=== PATIENT | male | born 1990 | race African-American/Black ===

== ENCOUNTER 2017-06-09 00:59 | Emergency (ER) | payer BC, OTHER ==
[~2017-06-09] VITALS: Ht 190.5 cm; Wt 73.6 kg
[2017-06-09 01:04] VITALS: Ht 190.5 cm; Wt 73.6 kg
[2017-06-09] MEDS ORDERED: IBUPROFEN 600 MG TAB PO ONE (02:00)
--- NOTE | 2017-06-09 02:37 | RADRPT ---
PROCEDURE: XR Ribs. CLINICAL INDICATION: Chest pain. TECHNIQUE: 5 frontal and oblique views of the right ribs were obtained. The images were reviewed on a PACS workstation. COMPARISON: None. FINDINGS: There is no evidence for a rib fracture. The underlying lung parenchyma is intact without evidence f or pneumothorax. IMPRESSION: No acute rib fracture identified. .Michael Shelton MD, Date Time Electronically viewed and signed by .Michael Shelton MD, on 06/09/2017 02:36 .T/
[2017-06-09] MEDS ORDERED: IBUP-1542 PO (02:41)
[2017-06-09 02:50] VITALS: BP 119/80; PULSE 88; RESP 18; TEMP 98.1
--- NOTE | 2017-06-09 03:27 | ERD ---
ER Documentation Chief Complaint Chief Complaint rt rib pain when coughing or when pressed HPI Patient is a 26-year-old male presenting to the emergency department with complaints of right lower rib pain which onset gradually over the past 2-3 days. He does state he has been increasing the intensities of his workouts at the gym over this time. Symptoms are intermittent, tenderness 10 on the pain scale, worse with coughing or movement. He has taken no medication for relief of symptoms. He denies fevers, chills, trauma, or other symptoms at this time. ROS All systems reviewed and are negative except as per history of present illness. Medications Home Meds Active Scripts Ibuprofen* (Motrin*) 600 Mg Tab, 600 MG PO Q6, #30 TAB Prov:EPTRONA GIMENEZ PA-C 06/09/17 Allergies Allergies: Coded Allergies: No Known Drug Allergies (Verified Allergy, Unknown, 06/09/17) PMhx/Soc Medical and Surgical Hx: pt denies Medical Hx, pt denies Surgical Hx Hx Alcohol Use: Yes Hx Substance Use: No Hx Tobacco Use: Yes Smoking Status: Current some day smoker Physical Exam Vitals Vital Signs Date Time Temp Pulse Resp B/P Pulse Ox O2 Delivery O2 Flow Rate FiO2 06/09/17 02:50 98.1 88 18 119/80 96 Room Air 06/09/17 01:04 98.1 111 18 139/79 98 Physical Exam Const: Nontoxic, well-appearing male in no acute distress. Head: Atraumatic Eyes: Normal Conjunctiva ENT: Normal External Ears, Nose and Mouth. Neck: Full range of motion..~ No meningismus. Ribs: Mild tenderness palpation of the right lower ribs but no ecchymosis. Skin: No petechiae or rashes Neur: Awake and alert Psych: Normal Mood and Affect Results 24 hrs Current Medications Medications (Trade) Dose Ordered Sig/Refugio Route PRN Reason Start Time Stop Time Status Last Admin Dose Admin Ibuprofen (Motrin) 600 mg ONCE ONCE PO 06/09/17 02:00 06/09/17 02:01 DC 06/09/17 02:06 Procedures/MDM 26-year-old male presenting to the emergency department with complaints of right lower rib pain. X-ray was negative for acute fracture. Diagnosis is rib pain with unclear etiology. Low suspicion for pneumothorax, pulmonary embolism , rib fracture, or other emergent conditions. Patient is stable for outpatient management with a prescription for ibuprofen. No evidence of life-threatening pathology at time of discharge. Pt/family in agreement with discharge plan/ diagnosis. Pt/family advised to return immediately with any new or worsening symptoms. Follow-up with primary care physician within the next 1-2 days. PROCEDURE: XR Ribs. CLINICAL INDICATION: Chest pain. TECHNIQUE: 5 frontal and oblique views of the right ribs were obtained. The images were reviewed on a PACS workstation. COMPARISON: None. FINDINGS: There is no evidence for a rib fracture. The underlying lung parenchyma is intact without evidence for pneumothorax. IMPRESSION: No acute rib fracture identified. .Michael Shelton MD, MD Date Time Electronically viewed and signed by .Michael Shelton MD, on 06/09/2017 02:36 Departure Diagnosis: Primary Impression: Rib pain Condition: Fair Patient Instructions: Rib Contusion Referrals: [facility] YOU HAVE RECEIVED A MEDICAL SCREENING EXAM AND THE RESULTS INDICATE THAT YOU DO NOT HAVE A CONDITION THAT REQUIRES URGENT TREATMENT IN THE EMERGENCY DEPARTMENT. FURTHER EVALUATION AND TREATMENT OF YOUR CONDITION CAN WAIT UNTIL YOU ARE SEEN IN YOUR DOCTORS OFFICE WITHIN THE NEXT 1-2 DAYS. IT IS YOUR RESPONSIBILITY TO MAKE AN APPOINTMENT FOR FOLOW-UP CARE. IF YOU HAVE A PRIMARY DOCTOR --you should call your primary doctor and schedule an appointment IF YOU DO NOT HAVE A PRIMARY DOCTOR YOU CAN CALL OUR PHYSICIAN REFERRAL HOTLINE AT IF YOU CAN NOT AFFORD TO SEE A PHYSICIAN YOU CAN CHOSE FROM THE FOLLOWING [facility] [address] [facility] [address] [facility] [facility] [address] [facility] [address] [facility] [address] [facility]. [address] [place] Additional Instructions: Call your primary care doctor TOMORROW for an appointment during the next 1-2 days.See the doctor sooner or return here if your condition worsens before your appointment time. PETRONA GIMENEZ PA-C Jun 09, 2017 03:27
== END 2017-06-09 02:53 | disposition home or self-care (01) ==
LOC: FTE 00:59
DX: R07.81 Pleurodynia (principal); F17.210 Nicotine dependence, cigarettes, uncomplicated
CPT/HCPCS: 71100; Z7502; Z7610